=== PATIENT | female | born 1950 | race Caucasian/White ===

== ENCOUNTER 2017-06-16 20:08 | Emergency (ER) | payer OTHER ==
[~2017-06-16] VITALS: Ht 160 cm; Wt 65.8 kg
[2017-06-17] MEDS ORDERED: NABUMETONE750 MG PO (02:53)
[2017-06-17] MEDS ORDERED: AMOX1TAB5 PO (02:53)
== END 2017-06-17 03:20 | disposition home or self-care (01) ==
LOC: ER 20:08
DX: S01.02XA Laceration with foreign body of scalp, initial encounter (principal); W26.8XXA Contact with other sharp object(s), not elsewhere classified, initial encounter; Y93.01 Activity, walking, marching and hiking; Y92.480 Sidewalk as the place of occurrence of the external cause; Y99.8 Other external cause status

== ENCOUNTER → 2017-06-27 | Emergency (ER) | payer OTHER ==
[~2017-06-27] VITALS: Ht 157.5 cm; Wt 51.7 kg
[~2017-06-27] MED LIST: AMOX1TAB5 PO; ATENOLOL100 MG; JANUMET 50-1,01 EACH; NABUMETONE750 MG PO; [UNRECOGNIZED DRUG - OTHER]
== END | disposition home or self-care (01) ==
LOC: ER 10:50
DX: Z48.02 Encounter for removal of sutures (principal)

== ENCOUNTER → 2017-07-01 | Emergency (ER) | payer OTHER ==
[~2017-07-01] VITALS: Ht 157.5 cm; Wt 51.7 kg
== END | disposition home or self-care (01) ==
LOC: ER 09:34
DX: Z48.02 Encounter for removal of sutures (principal)

== ENCOUNTER 2017-07-06 09:35 | Emergency (ER) | payer OTHER ==
[~2017-07-06] VITALS: Ht 157.5 cm; Wt 51.7 kg
== END 2017-07-06 13:14 | disposition home or self-care (01) ==
LOC: ER 09:35
DX: T81.89XA Other complications of procedures, not elsewhere classified, initial encounter (principal); Z48.02 Encounter for removal of sutures